=== PATIENT | male | born 1995 | race Caucasian/White ===

== ENCOUNTER 2016-12-10 | Emergency (ER) | payer SELFPAY ==
[2016-12-10 00:08] VITALS: O2SAT 98
--- NOTE | 2016-12-10 00:09 | C.PDOC ---
History Of Present Illness 21M c/o body aches, dry cough, sore throat, congestion, vomiting, headache, subjective fever since yesterday. took ibuprofen around 6pm today. Time Seen by Provider: 12/10/16 00:09 Chief Complaint (Nursing): Flu-like Symptoms Past Medical History Vital Signs: Last Vital Signs Temp 100 F H 12/10/16 01:34 Pulse 92 H 12/10/16 01:34 Resp 18 12/10/16 01:34 BP 104/60 12/10/16 01:34 Pulse Ox 98 12/10/16 01:34 Family History: States: Other Other Family History: nc - Social History Hx Tobacco Use: No Hx Alcohol Use: No Hx Substance Use: No - Immunization History Hx Tetanus Toxoid Vaccination: Yes Hx Influenza Vaccination: Yes Hx Pneumococcal Vaccination: No Review Of Systems Cardiovascular: Negative for: Chest Pain Respiratory: Positive for: Cough. Negative for: Shortness of Breath Gastrointestinal: Positive for: Nausea, Vomiting. Negative for: Abdominal Pain , Diarrhea Skin: Negative for: Rash Physical Exam - Physical Exam Appears: Well, Non-toxic, No Acute Distress Skin: Warm, Dry, No Diaphoretic Head: No Atraumatic Eye(s): bilateral: PERRL Oral Mucosa: Moist Tongue: No Swelling, No Lesions Lips: No Swelling Neck: Normal ROM, Supple Cardiovascular: Rhythm Regular Respiratory: No Decreased Breath Sounds, No Accessory Muscle Use, No Rales, No Rhonchi, No Stridor, No Wheezing Gastrointestinal/Abdominal: Soft, No Tenderness Neurological/Psych: Oriented x3, Normal Motor, Normal Sensation, Other (no focal deficits) ED Course And Treatment O2 Sat by Pulse Oximetry: 98 Disposition - Disposition Referrals: [facility] [Outside] Disposition: HOME/ ROUTINE Disposition Time: 02:04 Condition: GOOD Prescriptions: Azithromycin [Zithromax] 250 mg PO DAILY #6 tab Forms: General Discharge Instructions, [facility] (Ukrainian), Work Excuse - Clinical Impression Clinical Impression: Influenza-like illness
[2016-12-10 01:34] VITALS: BP 104/60; PULSE 92; RESP 18; TEMP 100
== END 2016-12-10 02:06 | disposition home or self-care (01) ==
LOC: C.ER
DX: J11.1 Influenza due to unidentified influenza virus with other respiratory manifestations (principal)
CPT/HCPCS: 87070; 87430; 87804; 96372; 99283; J1885

== ENCOUNTER 2016-12-21 21:55 | Emergency (ER) | payer SELFPAY ==
[2016-12-21 22:07] VITALS: TEMP 97
[2016-12-21] MEDS ORDERED: Lidocaine 1% Inj (20ml) ONE (22:22)
[2016-12-21] MEDS ORDERED: Lidocaine 1% Inj (20ml) INFIL STA (22:26)
--- NOTE | 2016-12-21 23:47 | C.PDOC ---
History Of Present Illness 21 year old male who presents to the ER after he was playing with a knife and fell; suffering lacerations to the left index finger and left 3rd finger. Denies weakness or numbness. Time Seen by Provider: 12/21/16 22:21 Chief Complaint (Nursing): Abnormal Skin Integrity History Per: Patient History/Exam Limitations: no limitations Onset/Duration Of Symptoms: Hrs Current Symptoms Are (Timing): Still Present Location Of Injury: Left: Hand Quality Of Symptoms: Other (Laceration) Recent travel outside of the [place]: No Past Medical History Reviewed: Historical Data, Nursing Documentation, Vital Signs Vital Signs: Last Vital Signs Temp 97 F L 12/21/16 22:03 Pulse 74 12/22/16 00:11 Resp 16 12/22/16 00:11 BP 118/79 12/22/16 00:11 Pulse Ox 100 12/22/16 02:38 - Medical History PMH: No Chronic Diseases Surgical History: No Surg Hx Family History: States: Unknown Family Hx - Social History Hx Tobacco Use: No Hx Alcohol Use: No Hx Substance Use: No - Immunization History Hx Tetanus Toxoid Vaccination: No Hx Influenza Vaccination: Yes Hx Pneumococcal Vaccination: No Review Of Systems Skin: Positive for: Other (Lacerations) Neurological: Negative for: Weakness, Numbness Physical Exam - Physical Exam Appears: Non-toxic Skin: Normal Color, Warm, Dry Head: Atraumatic, Normacephalic Extremity: Capillary Refill (Good), No Deformity, No Swelling, Other (2cm superficial laceration to palmar aspect of distal left 3rd finger, 2cm laceration to palmar aspect of left index finger DIP joint.) Pulses: Left Radial: Normal, Right Radial: Normal Neurological/Psych: Oriented x3, Normal Speech, Normal Cognition ED Course And Treatment O2 Sat by Pulse Oximetry: 100 (Room air) Pulse Ox Interpretation: Normal Progress Note: Patient tolerated laceration procedure with no difficulty. Patient is up to date with tetanus. Patient given proper wound care instructions and advised to follow up for suture removal. Laceration - Laceration Repair Left index finger Wound Length (In cm): 2 Description Of Wound: Linear Wound Cleansed With: Betadine, Sterile Saline Anesthesia: Lidocaine 1% Wound Examination: Irrigated With Saline Wound Closure: Suture (x3) Suture Technique And Material Used: Nylon (4-0) Wound Complexity: Simple Disposition - Disposition Disposition: HOME/ ROUTINE Disposition Time: 00:07 Condition: STABLE Additional Instructions: Follow up with your PMD within 1-2 days. Return to Ed if feel worse. Suture removal in 7-9 days. Prescriptions: Bacitracin OINT 1 applic TP TID #45 g Instructions: Finger Laceration (ED) Forms: [facility] (Danish) - Clinical Impression Clinical Impression: Finger laceration - Scribe Statement The provider has reviewed the documentation as recorded by the Scribhermelinda Foster All medical record entries made by the Simonaibe were at my direction and personally dictated by me. I have reviewed the chart and agree that the record accurately reflects my personal performance of the history, physical exam, medical decision making, and the department course for this patient. I have also personally directed, reviewed, and agree with the discharge instructions and disposition.
[2016-12-22 00:11] VITALS: BP 118/79; PULSE 74; RESP 16
[2016-12-22 02:39] VITALS: O2SAT 100
== END 2016-12-22 00:11 | disposition home or self-care (01) ==
LOC: C.ER 21:55
DX: S61.211A Laceration without foreign body of left index finger without damage to nail, initial encounter (principal); W26.0XXA Contact with knife, initial encounter

== ENCOUNTER 2016-12-29 09:15 | Emergency (ER) | payer MEDICAID, OTHER ==
[2016-12-29 09:22] VITALS: BP 123/75; PULSE 72; RESP 18; TEMP 97.9; O2SAT 98
--- NOTE | 2016-12-29 09:25 | C.PDOC ---
History Of Present Illness Patient is a 21 y/o M presenting for suture removal. Patient cut his finger on 12/21 and presents for suture removal. Denies somatic complaints. Denies fever , discharge from wound, redness, or swelling. Denies numbness or tingling. Time Seen by Provider: 12/29/16 09:25 Chief Complaint (Nursing): Suture/Staple Removal Past Medical History Vital Signs: Last Vital Signs Temp 97.9 F 12/29/16 09:21 Pulse 72 12/29/16 09:21 Resp 18 12/29/16 09:21 BP 123/75 12/29/16 09:21 Pulse Ox 98 12/29/16 09:32 Family History: States: Unknown Family Hx - Social History Hx Tobacco Use: No Hx Alcohol Use: No Hx Substance Use: No - Immunization History Hx Tetanus Toxoid Vaccination: No Hx Influenza Vaccination: Yes Hx Pneumococcal Vaccination: No Review Of Systems Constitutional: Negative for: Fever Cardiovascular: Negative for: Chest Pain Respiratory: Negative for: Cough Gastrointestinal: Negative for: Nausea, Vomiting, Abdominal Pain, Diarrhea, Constipation Musculoskeletal: Negative for: Hand Pain Neurological: Negative for: Weakness, Numbness, Headache Physical Exam - Physical Exam Appears: Well, Non-toxic Skin: Normal Color, Warm, Dry Head: Atraumatic, Normacephalic Extremity: Other (3 sutures from finger removed. Wound clean and intact. No erythema. Normal ROM and distal pulses intact.) Neurological/Psych: Oriented x3 Gait: Steady ED Course And Treatment O2 Sat by Pulse Oximetry: 98 Medical Decision Making Medical Decision Making: Sutures removed and patient discharged. Disposition - Disposition Disposition: HOME/ ROUTINE Disposition Time: 09:32 Condition: GOOD Additional Instructions: Keep wound clean. Follow-up with PMD within 2 days. Return to ED with any worsening symptoms. Instructions: Stitches Removal (ED) Forms: [employer] (German) - Clinical Impression Clinical Impression: Removal of suture
== END 2016-12-29 10:05 | disposition home or self-care (01) ==
LOC: C.ER 09:15
DX: Z48.02 Encounter for removal of sutures (principal)